=== PATIENT | female | born 1955 | race Caucasian/White ===

== ENCOUNTER 2017-09-12 08:00 | Outpatient (CLI) | payer MEDICARE, MEDICAID | END 2017-09-12 08:01 | disposition home or self-care (01) | LOC: BICULT 08:00 | PROVIDERS: ATTEND Family Medicine | DX: R10.9 Unspecified abdominal pain (principal) | CPT/HCPCS: 93880 ==

== ENCOUNTER 2017-10-19 08:43 | Outpatient (CLI) | payer MEDICARE, MEDICAID ==
--- NOTE | 2017-10-19 13:22 | MRI ---
BRAIN MRI WITHOUT CONTRAST: History: Right eye vision loss when patient wakes up in the morning, for months. Vision change. Trans ient vision loss. Comparison: None. Technique: Brain MRI is performed without intravenous gadolinium administration. Multisequential, mul tiplanar imaging performed. FINDINGS: Calvarium has a normal T1 marrow signal intensity. Midline brain parenchymal structures are unremarka ble. No hemorrhage on the axial gradient echo sequence. Central arterial flow voids are maintained. Absent restricted diffusion. There are T2 and FLAIR white matter hyperintensities, likely due to chronic small vessel ischemic manuel nge. No parenchymal mass, mass effect, or midline shift. Brain volume is age appropriate. Cortical aranda wh ite matter differentiation is preserved. Ventricles and sulci are patent and symmetric. Adequate aeration of the sinuses and mastoid air cells. Grossly, the visualized orbits are unremarkable. No obvious mass at the level of the optic chiasm. IMPRESSION: No acute intracranial process. POS: [facility]
--- NOTE | 2017-10-19 13:25 | MRI ---
MR ANGIOGRAM OF THE [place] OF [place]: Date: 10/19/17 HISTORY: Vision change. Transient right eye vision loss. Headache. COMPARISON: None. TECHNIQUE: Axial 3D [id number] imaging performed. Maximum intensity projection images are submitted for inte rpretation. FINDINGS: There is symmetric flow-related signal in the distal cervical and intracranial internal carotid arter ies. Anterior Circulation: There is symmetric flow-related signal in the A1 and M1 segments. Symmetric flow signal in the proxim al MCA branches and proximal A2 segments. Posterior Circulation: Limited evaluation of both PICA artery origin. Both vertebral arteries are essentially codominant and supply a normal appearing basilar artery. There is appropriate flow-related signal. Symmetric flow-r elated signal in the left and right P1 segments. IMPRESSION: Unremarkable MR angiogram of [place]. POS: [facility]
== END 2017-10-19 08:44 | disposition home or self-care (01) ==
LOC: SCSMRI 08:43
PROVIDERS: ATTEND Student in an Organized Health Care Education/Training Program
DX: H54.61 Unqualified visual loss, right eye, normal vision left eye (principal); H53.9 Unspecified visual disturbance; H53.129 Transient visual loss, unspecified eye; R51 Headache; I72.9 Aneurysm of unspecified site
CPT/HCPCS: 36415; 70544; 70551; 80048; 83735

== ENCOUNTER 2018-06-30 14:21 | Outpatient (CLI) | payer MEDICARE ==
--- NOTE | 2018-06-30 18:32 | BD ---
DEXA BONE DENSITY STUDY: Comparison: None. History: 53-year-old post-menopausal female for screening. Lumbar Spine: BMD (g/cm2) L1 0.820 T-Score: -1.5 L2 0.917 T-Score: -1.0 L3 0.772 T-Score: -2.8 L4 0.764 T-Score: -2.7 L1-L4 0.815 T-Score: -2.1 Femoral Neck: 0.781 T-Score: -0.6 Total Femur: 0.851 T-Score: -0.7 Impression: Osteopenia. This patient has a ten-year fracture risk of major osteoporotic fracture of 14%, hip frac ture 1.4% POS: [facility]
== END 2018-06-30 14:22 | disposition home or self-care (01) ==
LOC: BICMAMMO 14:21
PROVIDERS: ATTEND Family Medicine
DX: Z12.31 Encounter for screening mammogram for malignant neoplasm of breast (principal); Z13.820 Encounter for screening for osteoporosis; M85.88 Other specified disorders of bone density and structure, other site; Z80.3 Family history of malignant neoplasm of breast
CPT/HCPCS: 77063; 77067; 77080

== ENCOUNTER 2019-01-25 09:02 | Outpatient (CLI) | payer MEDICARE ==
--- NOTE | 2019-01-25 09:53 | CT ---
CT ABDOMEN AND PELVIS WITH ORAL AND IV CONTRAST: HISTORY: Lower abdominal pain, diverticulitis. Patient was premedicated for iodine allergy. FINDINGS: Minimal dependent changes are present. No calcified gallstones are noted. The spleen, pancreas, adren al glands and kidneys are normal. The liver demonstrates diffusely decreased attenuation compared to the spleen, consistent with fatty infiltration. No hepatic mass or abnormal biliary ductal dilatat ion is identified. No free air, free fluid or lymphadenopathy seen in the abdomen or pelvis. There are vascular calcific ations without evidence of aneurysmal dilatation of the abdominal aorta. There are degenerative changes in the spine. Uterus is present. The small bowel loops are not abnormally dilated. No pericol onic inflammatory changes are noted. No abnormally loculated fluid collection is seen to suggest abscess formation. IMPRESSION: 1. Fatty liver 2. No evidence of acute process.
== END 2019-01-25 09:03 | disposition home or self-care (01) ==
LOC: CT 09:02
PROVIDERS: ATTEND Family Medicine
DX: K57.92 Diverticulitis of intestine, part unspecified, without perforation or abscess without bleeding (principal); K76.0 Fatty (change of) liver, not elsewhere classified
CPT/HCPCS: 74177; 82565

== ENCOUNTER 2020-10-09 15:07 | Outpatient (CLI) | payer MEDICARE, MEDICAID ==
--- NOTE | 2020-10-09 17:01 | CT ---
LOW DOSE SCREENING LUNG CT: Date: 10/09/2020 HISTORY: 40+ years of 1 pack/day smoking. Patient is currently a smoker. Nicotine dependence. COMPARISON: None. TECHNIQUE: Utilizing institution protocol, low dose screening CT of the chest is performed. FINDINGS: Lung-RADS: Category 1. No evidence of a suspicious mass or nodule. No evidence of malignancy. Lung-RADS Category S: None. Pulmonary Incidentals: Mild emphysematous changes. There is a 3.0 mm nodule in the lateral posterior middle lobe. There is a subpleural lymph node abutting the major fissure measuring 0.3 cm. Dependent atelectatic changes of the lung parenchyma. Mild emphysematous changes involving the left and right lung apex. Other Incidentals: Atherosclerosis and coronary artery calcification. Remote superior end plate comp ression deformity involving the L2 vertebral body. IMPRESSION: 1. Lung-RADS Category 1 - Negative exam. No evidence of a suspicious mass nodule. 2. Lung-RADS Category S: None. RECOMMENDATION: Low dose CT should be performed in 1 year. POS: [facility]
== END 2020-10-09 15:08 | disposition home or self-care (01) ==
LOC: BICCT 15:07
PROVIDERS: ATTEND Family Medicine
DX: Z12.2 Encounter for screening for malignant neoplasm of respiratory organs (principal); F17.210 Nicotine dependence, cigarettes, uncomplicated
CPT/HCPCS: 71271

== ENCOUNTER 2021-08-13 14:03 | Emergency (ER) | payer MEDICARE, OTHER | END 2021-08-13 15:06 | disposition left against medical advice (07) | LOC: ERS 14:03 | DX: Z53.21 Procedure and treatment not carried out due to patient leaving prior to being seen by health care provider (principal) ==

== ENCOUNTER 2021-09-10 13:39 | Outpatient (CLI) | payer MEDICARE | END 2021-09-10 13:40 | disposition home or self-care (01) | LOC: BICMAMMO 13:39 | PROVIDERS: ATTEND Family Medicine | DX: Z12.31 Encounter for screening mammogram for malignant neoplasm of breast (principal); Z80.3 Family history of malignant neoplasm of breast | CPT/HCPCS: 77063; 77067 ==

== ENCOUNTER 2023-06-14 14:57 | Outpatient (CLI) | payer OTHER | END 2023-06-14 14:58 | disposition home or self-care (01) | LOC: RAD 14:57 | PROVIDERS: ATTEND Family Medicine | DX: M19.041 Primary osteoarthritis, right hand (principal); M25.541 Pain in joints of right hand; M19.031 Primary osteoarthritis, right wrist; M19.032 Primary osteoarthritis, left wrist; M19.042 Primary osteoarthritis, left hand ==

== ENCOUNTER 2023-08-02 14:14 | Outpatient (CLI) | payer OTHER | END 2023-08-02 14:15 | disposition home or self-care (01) | LOC: BICRAD 14:14 | PROVIDERS: ATTEND Student in an Organized Health Care Education/Training Program | DX: M89.9 Disorder of bone, unspecified (principal) | CPT/HCPCS: 72220 ==

== ENCOUNTER 2025-09-02 13:08 | Outpatient (CLI) | payer OTHER | END 2025-09-02 13:09 | disposition home or self-care (01) | LOC: SCSULT 13:08 | PROVIDERS: ATTEND Student in an Organized Health Care Education/Training Program | DX: E01.1 Iodine-deficiency related multinodular (endemic) goiter (principal) | CPT/HCPCS: 76999 ==